=== PATIENT | female | born 1990 | race Caucasian/White ===

== ENCOUNTER 2020-01-06 17:43 | Emergency (ER) | payer OTHER ==
[~2020-01-06] VITALS: Ht 162.6 cm; Wt 56.2 kg
--- NOTE | 2020-01-06 18:08 | NUR ---
DOG BITE TO THE BRIDGE OF THE NOSE X2 HRS AGO. ABRASION NOTED.
[2020-01-06] MEDS ORDERED: TDAP [DIPH/PERTUSSIS/TET] 0.5 ML VIAL IM ONE ×2 (18:30→18:33)
[2020-01-06 18:58] VITALS: BP 116/71
== END 2020-01-06 19:01 | disposition home or self-care (01) ==
LOC: ER 17:52
DX: S00.31XA Abrasion of nose, initial encounter (principal); W54.0XXA Bitten by dog, initial encounter; Y93.89 Activity, other specified; Y92.89 Other specified places as the place of occurrence of the external cause; Y99.8 Other external cause status
CPT/HCPCS: 90471; 90715; 99283; A6403